=== PATIENT | female | born 1955 | race Caucasian/White ===

== ENCOUNTER → 2018-10-20 | Day surgery (SDC) | payer BC ==
[2018-10-19 12:00] LABS: ANION GAP 10.1 mmol/L (8-16); BLOOD UREA NITROGEN 18 mg/dL (7-26); BUN/CREATININE RATIO 21 (6-25); CALCIUM 9.8 mg/dL (8.4-10.2); CARBON DIOXIDE 28 mmol/L (22-29); CHLORIDE 106 mmol/L (98-107); CREATININE, SERUM 0.86 mg/dL (0.57-1.11); EST GLOMERULAR FILTRATION RATE > 60 ML/MIN (60-); GLUCOSE 61 mg/dL (74-118); POTASSIUM 5.1 mmol/L (3.5-5.1); SODIUM 139 mmol/L (136-145)
[~2018-10-20] MED LIST: BUPIVACAINE 0.5%/EPI 30 ML SDV INJ ONE; CLINDAMYCIN PHOS 900MG/ 50ML 50 ML IV ONE; DEXAMETHASONE SOD PHOS INJ 4 MG/ML VIAL ONE; DEXTROSE 5% 250ML 250 ML IV ONE; FENTANYL CITRATE/PF 100MCG/2 ML INJ ONE; LANTUS 3ML100 UNITS/; LIDOCAINE HCL 2% LOCAL INJ 5 ML SDV VIAL INJ ONE; METFORMIN HCL850 MG PO; MIDAZOLAM HCL 2 MG/2 ML VIAL ONE; ONDANSETRON HCL INJ 2MG/ML 2ML 2 MG/ML VIAL ONE; OSENI; PEPCID20 MG; PROPOFOL IV EMULSION 10 MG/ML 20 ML VIAL ONE; SEVOFLURANE INHAL SOLN 250 ML PEN BTL ONE
--- OUTSIDE RECORDS SUMMARY | 2018-10-20 07:43 | XMS REPORT | Clinical Summary ---
Author Author [facility] Address Unknown Phone Unavailable Care Team Providers Care Kitchen Runner Name Role Phone PCP Unavailable Allergies Not on File Medications Not on file Active Problems Not on file Social History Date Tobacco Use Types Packs/Day Years Used Never Assessed Sex Assigned at Date Recorded Not on file Industry Job Start Date Occupation Not on file Not on file Not on file Travel End Travel History Travel Start No recent travel history available. Last Filed Vital Signs Not on file Plan of Treatment Not on file Results Not on fileafter 10/19/2017
--- OUTSIDE RECORDS SUMMARY | 2018-10-20 07:43 | XMS REPORT | Clinical Summary ---
Author Author [facility] Address Unknown Phone Unavailable Care Team Providers Care Para Machine Operator Name Role Phone Lucas Mathews MD PCP Unavailable Allergies Comments Active Allergy Reactions Severity Noted Date Penicillins Rash Low 11/01/2015 Tetanus And Diphtheria 11/01/2015 Toxoids Medications End Date Status Medication Sig Dispensed Refills Start Date Active multivitamin with Take 1 tablet 0 minerals tablet by mouth daily. Active IRON,CARBONYL/VIT C/VIT Take 1 tablet 0 B12/FA (IRON 100 PLUS by mouth ORAL) daily. Active pen needle, diabetic (BD Use one 100 each 1 INSULIN PEN NEEDLE UF needle twice 7 MINI) 31 gauge x 3/16" a day needle Active PROAIR RESPICLICK 90 0 mcg/actuation aerosol 7 powdr breath activated Active levocetirizine (XYZAL) 5 Take 1 tablet 90 tablet 1 MG tablet (5 mg total) 8 by mouth every evening. Active famotidine (PEPCID) 20 MG Take 1 tablet 360 tablet 1 tablet (20 mg total) 8 by mouth 2 (two) times a day. Active metFORMIN XR Take 1 tablet 360 tablet 1 (GLUCOPHAGE-XR) 500 mg 24 (500 mg 8 hr tablet total) by mouth 2 (two) times a day. 05/03/2019 Active insulin GLARGINE (LANTUS Inject 70 1000 mL 1 U-100 INSULIN) 100 Units under 8 unit/mL injection (vial) the skin nightly. Active alogliptin-pioglitazone Take 1 tablet 180 tablet 4 (OSENI) 25-45 mg tablet by mouth 8 daily. Active blood sugar diagnostic Test 3 times 100 strip 11 strips (glucose blood) a day. 9 strip test strips Active lancets misc Test 3 times 100 each 11 a day. 9 11/17/2017 aspirin (ECOTRIN) 81 MG Take 1 tablet 30 tablet 11 enteric coated tablet (81 mg total) 7 by mouth daily. 11/02/2017 Discontinued levocetirizine (XYZAL) 5 Take 1 tablet 90 tablet 1 MG tablet (5 mg total) 7 by mouth every evening. 10/31/2017 traMADol (ULTRAM) 50 mg Take 1 tablet 180 tablet 1 tablet (50 mg total) 7 by mouth every 8 (eight) hours as needed for moderate pain for up to 180 days. 11/02/2017 Discontinued famotidine (PEPCID) 20 MG Take 1 tablet 360 tablet 1 tablet (20 mg total) 7 by mouth 2 (two) times a day. 11/02/2017 Discontinued metFORMIN XR Take 1 tablet 360 tablet 1 (GLUCOPHAGE-XR) 500 mg 24 (500 mg 7 hr tablet total) by mouth 2 (two) times a day. 05/03/2018 Discontinued alogliptin-pioglitazone Take 1 tablet 180 tablet 4 (OSENI) 25-45 mg tablet by mouth 7 daily. 11/02/2017 Discontinued insulin GLARGINE (LANTUS) Inject 70 1000 mL 1 100 unit/mL injection Units under 7 (vial) the skin nightly. 11/02/2017 Discontinued metFORMIN XR Take 1 tablet 360 tablet 1 (GLUCOPHAGE-XR) 500 mg 24 (500 mg 8 hr tablet total) by mouth 2 (two) times a day. 05/03/2018 Discontinued insulin GLARGINE (LANTUS Inject 70 1000 mL 1 U-100 INSULIN) 100 Units under 8 unit/mL injection (vial) the skin nightly. 11/02/2017 Discontinued famotidine (PEPCID) 20 MG Take 1 tablet 360 tablet 1 tablet (20 mg total) 8 by mouth 2 (two) times a day. 05/03/2018 Discontinued metFORMIN XR Take 1 tablet 360 tablet 1 (GLUCOPHAGE-XR) 500 mg 24 (500 mg 8 hr tablet total) by mouth 2 (two) times a day. 05/03/2018 Discontinued famotidine (PEPCID) 20 MG Take 1 tablet 360 tablet 1 tablet (20 mg total) 8 by mouth 2 (two) times a day. 01/31/2018 traMADol (ULTRAM) 50 mg Take 1 tablet 180 tablet 1 tablet (50 mg total) 8 by mouth 2 (two) times a day as needed for moderate pain for up to 90 days. 12/02/2017 mometasone (ELOCON) 0.1 % Apply 45 g 0 ointment topically 2 8 (two) times a day as needed (prn) for up to 30 days. 05/03/2018 Discontinued traMADol (ULTRAM) 50 mg TK 1 T PO BID 1 tablet PRF MODERATE 8 PAIN FOR UP TO 90 DAYS 10/01/2018 traMADol (ULTRAM) 50 mg TK 1 T PO BID 180 tablet 1 tablet PRN MODERATE 8 PAIN FOR UP TO 90 DAYS 08/22/2018 blood-glucose meter misc 1 applicator 1 each 0 2 (two) times 9 a day for 30 days. Active Problems Problem Noted Date Tobacco dependence 05/03/2018 Overview: Refuses medical tx at this time Statin intolerance 05/04/2017 Refused influenza vaccine 05/04/2017 Gastroesophageal reflux disease without esophagitis 11/17/2016 Colon cancer screening 11/17/2016 Hyperlipidemia 11/17/2016 Type 2 diabetes mellitus without complication, without long-term current 11/17/2016 use of insulin Primary osteoarthritis of both knees 11/17/2016 ACEI/ARB contraindicated 11/17/2016 Overview: has been unable to tolerate any of these meds due to side effects Encounters Care Team Description Date Type Specialty Carol Ibarra MA 07/23/2018 Orders Only Family Lucas Ram MD Type 2 diabetes mellitus without complication, without long-term current use of insulin (HCC) (Primary Dx); ACEI/ARB contraindicated; Statin intolerance; Pure hypercholesterolemia; Gastroesophageal reflux disease without esophagitis; Colon cancer screening; Tobacco dependence 05/03/2018 Office Visit Lucas Sanchez MD Type 2 diabetes mellitus without complication, without long-term current use of insulin (Primary Dx); Gastroesophageal reflux disease without esophagitis; ACEI/ARB contraindicated; Statin intolerance; Other hyperlipidemia; BMI 34.0-34.9,adult; Other atopic dermatitis 11/02/2017 Office Visit Family Medicine after 10/19/2017 Immunizations Name Dates Previously Given Next Due Influenza Trivalent 12/28/2015 Pneumococcal 05/25/2009 Polysaccharide Family History Medical History Relation Name Comments Diabetes Father No Known Problems Mother Relation Name Status Comments Father Mother Social History Date Tobacco Use Types Packs/Day Years Used Current Every Day Smoker Cigarettes 0.5 Smokeless Tobacco: Current User Alcohol Use Drinks/Week oz/Week Comments No Sex Assigned at Date Recorded Not on file Industry Job Start Date Occupation Not on file Not on file Not on file Travel End Travel History Travel Start No recent travel history available. Last Filed Vital Signs Time Taken Vital Sign Reading 05/03/2018 8:25 AM [facility] Blood Pressure 134/78 05/03/2018 8:25 AM [facility] Pulse 69 05/03/2018 8:25 AM [facility] Temperature 36.7 C (98 F) 11/02/2017 8:44 AM CDT Respiratory Rate 16 05/03/2018 8:25 AM [facility] Oxygen Saturation 97% - Inhaled Oxygen - Concentration 05/03/2018 8:25 AM [facility] Weight 95.3 kg (210 lb) 05/03/2018 8:25 AM [facility] Height 165.1 cm (5' 5") 05/03/2018 8:25 AM [facility] Body Mass Index 34.95 Plan of Treatment Care Team Description Date Type Specialty Lucas Mathews MD [id number] [address] [phone] 11/01/2018 Office Visit Family Medicine Health Maintenance Due Date Last Done Comments SHINGLES VACCINES (#1) 2006 DIABETIC FOOT EXAM 11/02/2018 11/02/2017, 11/02/2017 BREAST CANCER SCREENING 11/11/2018 11/11/2016 INFLUENZA VACCINE 12/23/2018 02/01/2018, 12/28/2015 DIABETIC RETINAL EYE EXAM 02/02/2019 02/02/2017 (Previously completed) URINE MICROALBUMIN 04/29/2019 04/29/2018, 10/29/2017, 04/30/2017, Additional history exists COLON CANCER SCREENING 10/06/2028 10/06/2018, 06/12/2017 Procedures Comments Procedure Name Priority Date/Time Associated Diagnosis ZZBLOOD OCCULT Routine 10/06/2018 Colon cancer screening PEROXIDASE, DIGITAL EXAM 9:45 AM CDT HEMOGLOBIN A1C Routine 04/29/2018 Type 2 diabetes mellitus 1:21 PM [facility] without complication, without long-term current use of insulin (HCC) Gastroesophageal reflux disease without esophagitis ACEI/ARB contraindicated Statin intolerance Other hyperlipidemia BMI 34.0-34.9,adult Other atopic dermatitis MICROALBUMIN / CREATININE Routine 04/29/2018 Type 2 diabetes mellitus URINE RATIO 1:21 PM [facility] without complication, without long-term current use of insulin (HCC) Gastroesophageal reflux disease without esophagitis ACEI/ARB contraindicated Statin intolerance Other hyperlipidemia BMI 34.0-34.9,adult Other atopic dermatitis URINALYSIS, AUTOMATED Routine 04/29/2018 Type 2 diabetes mellitus WITH MICROSCOPY 1:21 PM [facility] without complication, without long-term current use of insulin (HCC) Gastroesophageal reflux disease without esophagitis ACEI/ARB contraindicated Statin intolerance Other hyperlipidemia BMI 34.0-34.9,adult Other atopic dermatitis HEPATIC FUNCTION PANEL Routine 04/29/2018 Type 2 diabetes mellitus 1:21 PM [facility] without complication, without long-term current use of insulin (HCC) Gastroesophageal reflux disease without esophagitis ACEI/ARB contraindicated Statin intolerance Other hyperlipidemia BMI 34.0-34.9,adult Other atopic dermatitis LIPID PANEL Routine 04/29/2018 Type 2 diabetes mellitus 1:21 PM [facility] without complication, without long-term current use of insulin (HCC) Gastroesophageal reflux disease without esophagitis ACEI/ARB contraindicated Statin intolerance Other hyperlipidemia BMI 34.0-34.9,adult Other atopic dermatitis CBC WITH PLATELET AND Routine 04/29/2018 Type 2 diabetes mellitus DIFFERENTIAL 1:21 PM [facility] without complication, without long-term current use of insulin (HCC) Gastroesophageal reflux disease without esophagitis ACEI/ARB contraindicated Statin intolerance Other hyperlipidemia BMI 34.0-34.9,adult Other atopic dermatitis BASIC METABOLIC PANEL Routine 04/29/2018 Type 2 diabetes mellitus 1:21 PM [facility] without complication, without long-term current use of insulin (HCC) Gastroesophageal reflux disease without esophagitis ACEI/ARB contraindicated Statin intolerance Other hyperlipidemia BMI 34.0-34.9,adult Other atopic dermatitis URINALYSIS, AUTOMATED Routine 10/29/2017 WITH MICROSCOPY 8:52 AM CDT CBC WITH PLATELET AND Routine 10/29/2017 Type 2 diabetes mellitus DIFFERENTIAL 8:52 AM CDT without complication, without long-term current use of insulin Gastroesophageal reflux disease without esophagitis Hyperlipidemia, unspecified hyperlipidemia type HEMOGLOBIN A1C Routine 10/29/2017 Type 2 diabetes mellitus 8:52 AM CDT without complication, without long-term current use of insulin MICROALBUMIN / CREATININE Routine 10/29/2017 Type 2 diabetes mellitus URINE RATIO 8:52 AM CDT without complication, without long-term current use of insulin HEPATIC FUNCTION PANEL Routine 10/29/2017 Hyperlipidemia, 8:52 AM CDT unspecified hyperlipidemia type LIPID PANEL Routine 10/29/2017 Hyperlipidemia, 8:52 AM CDT unspecified hyperlipidemia type BASIC METABOLIC PANEL Routine 10/29/2017 Type 2 diabetes mellitus 8:52 AM CDT without complication, without long-term current use of insulin after 10/19/2017 Results * Fecal Globin by Immunochemistry (InSure), Medicare Screen (10/06/2018 9:45 AM CDT) Result SEE NOTEComment: Not Detected [facility] [place] Specimen Stool Narrative Performed At FASTING: UNKNOWN [facility] Resulting Agency Comment Performing Organization Information: Site ID: [id number] Name: [facility] Address: [address] [place] [phone] Director: Kamilah Harrison Performing Organization Address City/State/Zipcode Phone Number [employer] [address] [address] * Microalbumin / creatinine urine ratio (04/29/2018 1:21 PM [facility]) Only the most recent of 2 results within the time period is included. Pathologist [facility] Creatinine, 149 20 - 275 mg/dL [facility] urine, random [facility] [place] Microalbumin, 0.9 See Note: mg/dL [facility] urine Comment: DIAGNOSTICS Reference Range: [place] Reference Range Not established Microalbumin/cr 6 <30 mcg/mg creat [facility] eatinine ratio Comment: DIAGNOSTICS The ADA defines abnormalities BLANCAS in albumin excretion as follows: Category Result (mcg/mg creatinine) Normal <30 Microalbuminuria 30-299 Clinical albuminuria > BV=275 The ADA recommends that at least two of three specimens collected within a 3-6 month period be abnormal before considering a patient to be within a diagnostic category. Specimen Urine Narrative Performed At FASTING: UNKNOWN [facility] Resulting Agency Comment Performing Organization Information: Site ID: [id number] Name: [facility] Address: [address] [place] [phone] Director: Kamilah Harrison Performing Organization Address [facility] Cent[facility] Phone Number [place] [address] * Urinalysis, automated with microscopy (04/29/2018 1:21 PM [facility]) Only the most recent of 2 results within the time period is included. Color, UA YELLOW YELLOW [facility] [place] Appearance CLEAR CLEAR [facility] [place] Specific 1.026 1.001 - 1.035 [facility] gravity, urine [facility] [place] pH, urine 5.5 5.0 - 8.0 [facility] [place] Glucose, urine NEGATIVE NEGATIVE [facility] [place] Bilirubin, UA NEGATIVE NEGATIVE [facility] [place] Ketones, UA NEGATIVE NEGATIVE [facility] [place] Occult blood, NEGATIVE NEGATIVE [facility] urine [facility] [place] Protein, UA NEGATIVE NEGATIVE [facility] [place] Nitrite, UA NEGATIVE NEGATIVE [facility] [place] Leukocyte NEGATIVE NEGATIVE [facility] esterase, UA [facility] [place] WBC, UA NONE SEEN < OR=5 /HPF [facility] [place] RBC, UA 0-2 < OR=2 /HPF [facility] [place] Squamous 0-5 < OR=5 /HPF [facility] epithelial [facility] cells, UA [place] Bacteria, UA NONE SEEN NONE SEEN /HPF [facility] [place] Hyaline casts, NONE SEEN NONE SEEN /LPF [facility] UA [facility] [place] Specimen Urine Narrative Performed At FASTING: UNKNOWN [facility] Resulting Agency Comment Performing Organization Information: Site ID: [id number] Name: [facility] Address: [address] [place] [phone] Director: Kamilah Harrison Performing Organization Address [facility] Centercode Phone Number [employer] [address] [phone] * CBC with platelet and differential (04/29/2018 1:21 PM [facility]) Only the most recent of 2 results within the time period is included. [facility] WBC 4.9 3.8 - 10.8 [facility] Thousand/uL [facility] [place] RBC 4.14 3.80 - 5.10 [facility] Million/uL [facility] [place] HGB 12.8 11.7 - 15.5 g/dL [facility] [place] HCT 38.3 35.0 - 45.0 % [facility] [place] MCV 92.5 80.0 - 100.0 fL [facility] [place] MCH 30.9 27.0 - 33.0 pg [facility] [place] MCHC 33.4 32.0 - 36.0 g/dL [facility] [place] RDW 13.4 11.0 - 15.0 % [facility] [place] Platelet count 237 140 - 400 [facility] Thousand/uL [facility] [place] MPV 11.1 7.5 - 12.5 fL [facility] [place] Neutrophils, 2,940 1,500 - 7,800 [facility] absolute cells/uL [facility] [place] Lymphocytes, 1,397 850 - 3,900 cells/uL [facility] absolute [facility] [place] Monocytes, 372 200 - 950 cells/uL [facility] absolute [facility] [place] Eosinophils, 152 15 - 500 cells/uL [facility] absolute [facility] [place] Basophils, 39 0 - 200 cells/uL [facility] absolute [facility] [place] Neutrophils 60 % [facility] [place] Lymphocytes 28.5 % [facility] [place] Monocytes 7.6 % [facility] [place] Eosinophils 3.1 % [facility] [place] Basophils + RC 0.8 % [facility] [place] Specimen Blood Narrative Performed At FASTING: UNKNOWN [facility] Resulting Agency Comment Performing Organization Information: Site ID: [id number] Name: [facility] Address: [address] [place] [phone] Director: Kamilah Harrison Performing Organization Address City/State/Zipcode Phone Number [place] [address] * Hemoglobin A1c (04/29/2018 1:21 PM [facility]) Only the most recent of 2 results within the time period is included. [facility] Hemoglobin A1C 5.8 (H) <5.7 % of total Hgb [facility] Comment: DIAGNOST[facility] For someone without known [place] diabetes, a hemoglobin A1c value between 5.7% and 6.4% is consistent with prediabetes and should be confirmed with a follow-up test. For someone with known diabetes, a value <7% indicates that their diabetes is well controlled. A1c targets should be individualized based on duration of diabetes, age, comorbid conditions, and other considerations. This assay result is consistent with an increased risk of diabetes. Currently, no consensus exists regarding use of hemoglobin A1c for diagnosis of diabetes for children. NO COLLECTION DATE RECEIVED. WE HAVE USED THE DATE THE SPECIMEN WAS RECEIVED BY THIS LABORATORY THE COLLECTION DATE. IF THIS IS INCORRECT, PLEASE CONTACT CLIENT SERVICES. PHONE NUMBER: [phone] Specimen Blood Narrative Performed At FASTING: UNKNOWN [facility] Resulting Agency Comment Performing Organization Information: Site ID: [facility] Name: [facility] Address: [address] [place] [phone] Director: Kamilah Harrison Performing Organization Address City/[facility] Centercode Phone Number [employer] [address] [address] * Hepatic function panel (04/29/2018 1:21 PM [facility]) Only the most recent of 2 results within the time period is included. Protein 6.9 6.1 - 8.1 g/dL [facility] [place] Albumin, S 4.0 3.6 - 5.1 g/dL [facility] [place] Globulin, total 2.9 1.9 - 3.7 g/dL [facility] (calc) [facility] [place] Albumin/globuli 1.4 1.0 - 2.5 (calc) [facility] n ratio [facility] [place] Total bilirubin 0.3 0.2 - 1.2 mg/dL [facility] [place] Bilirubin 0.1 < OR=0.2 mg/dL [facility] direct [facility] [place] Bilirubin, 0.2 0.2 - 1.2 mg/dL [facility] indirect (calc) [facility] [place] Alkaline 79 33 - 130 U/L [facility] phosphatase [facility] [place] AST 20 10 - 35 U/L [facility] [place] ALT 17 6 - 29 U/L [facility] [place] Specimen Blood Narrative Performed At FASTING: UNKNOWN [facility] Resulting Agency Comment Performing Organization Information: Site ID: [id number] Name: [facility] Address: [address] [place] [phone] Director: Kamilah Harrison Performing Organization Address City/[facility] Centercode Phone Number [employer] [address] [address] * Lipid panel (04/29/2018 1:21 PM [facility]) Only the most recent of 2 results within the time period is included. Pathologist [facility] Cholesterol, 215 (H) <200 mg/dL [facility] total [facility] [place] HDL cholesterol 48 (L) >50 mg/dL [facility] [place] Triglycerides 156 (H) <150 mg/dL [facility] [place] LDL cholesterol 138 (H) mg/dL (calc) [facility] calculated Comment: DIAGNOSTICS Reference range: <100 [place] Desirable range <100 mg/dL for primary prevention; <70 mg/dL for patients with CHD or diabetic patients with > or=2 CHD risk factors. LDL-C is now calculated using the Melly calculation, which is a validated novel method providing better accuracy than the Friedewald equation in the estimation of LDL-C. Ti ABAD et al. CINTHIA. 2013;310(56): 4298-1571 (http://education.BigTwist.Red Swoosh/faq/STE816) Cholesterol/HDL 4.5 <5.0 (calc) [facility] ratio [facility] [place] Non-HDL 167 (H) <130 mg/dL (calc) [facility] cholesterol Comment: DIAGNOSTICS For patients with diabetes [place] plus 1 major ASCVD risk factor, treating to a non-HDL-C goal of <100 mg/dL (LDL-C of <70 mg/dL) is considered a therapeutic option. Specimen Blood Narrative Performed At FASTING: UNKNOWN [facility] Resulting Agency Comment Performing Organization Information: Site ID: [id number] Name: [facility] Address: [address] [place] [phone] Director: Kamilah Harrison Performing Organization Address City/State/Zipcode Phone Number [facility] [address] * Basic metabolic panel (04/29/2018 1:21 PM [facility]) Only the most recent of 2 results within the time period is included. [facility] Glucose 74 65 - 99 mg/dL [facility] Comment: DIAGNOSTICS Fasting [place] reference interval BUN, whole 29 (H) 7 - 25 mg/dL [facility] blood [facility] [place] Creatinine 0.76 0.50 - 0.99 mg/dL [facility] Comment: DIAG[facility]ST[facility] For patients >49 years of age, [place] the reference limit for Creatinine is approximately 13% higher for people identified as -Guyanese. EGFR Non-Afr. 84 > OR=60 [facility] Guyanese mL/min/1.73m2 [facility] [place] EGFR 97 > OR=60 [facility] [place] mL/min/1.73m2 [facility] [place] BUN/creatinine 38 (H) 6 - 22 (calc) [facility] ratio [facility] [place] Sodium 141 135 - 146 mmol/L [facility] [place] Potassium 4.4 3.5 - 5.3 mmol/L [facility] [place] Chloride 103 98 - 110 mmol/L [facility] [place] CO2 31 20 - 32 mmol/L [facility] [place] Calcium 9.9 8.6 - 10.4 mg/dL [employer] [facility] [place] Specimen Blood Narrative Performed At FASTING: UNKNOWN [facility] Resulting Agency Comment Performing Organization Information: Site ID: [id number] Name: [facility] Address: [address] [place] [address] Director: Kamilah Harrison Performing Organization Address City/State/Zipcode Phone Number [employer] [place] [address] [place] [address] after 10/19/2017 Insurance Type Payer Benefit Subscriber ID Effective Phone Address Plan / Dates Group PPO BCBS BCBS xxxxxxxxxxxx [id number] CHOICE resent PPO/OCTAVIO L EMPL PPO Advance Directives Patient has advance care planning documents on file. For more information, shana donald contact: Harvey Vazquez [address] [place] [address]
[2018-10-20 13:20] VITALS: BP 121/78
--- NOTE | 2018-10-21 21:36 | Operative Report ---
DATE OF PROCEDURE: 10/20/2018 SURGEON: Raymundo Vargas MD PREOPERATIVE DIAGNOSES: Right knee medial meniscus tear and right knee degenerative joint disease of the knee. POSTOPERATIVE DIAGNOSES: Right knee medial meniscus tear, right knee degenerative joint disease of the knee, and right knee intra-articular loose bodies. OPERATION/PROCEDURE PERFORMED: The patient underwent a right knee examination under anesthesia, right knee arthroscopy, right knee partial medial meniscectomy, right knee chondroplasty of the patella, the trochlea, the medial femoral condyle, the medial tibial plateau, the lateral femoral condyle, lateral tibial plateau. There was also removal of several intraarticular loose bodies from the medial compartment. AIRCRAFT ENGINE SPECIALIST: Lexii Brunson. ANESTHESIA: General endotracheal intubation anesthesia. INTRAVENOUS FLUIDS: Per anesthesia record. BRIEF DESCRIPTION OF THE PATIENT'S OPERATIVE PROCEDURE: Ms. Villa is taken to the operating room, placed in supine position operating table. Following the induction of general anesthesia as well as endotracheal intubation, the patient's right lower extremity was examined under anesthesia. She was found to have a mild effusion within the knee joint, but otherwise ligamentously stable knee. The patient's lower extremities were prepped and draped in standard surgical fashion. A two port technique used to provide this patient arthroscopic evaluation of the joint. Examination of suprapatellar pouch, medial lateral gutters found no evidence of loose bodies. There was, however, evidence of chondromalacia of the patellar trochlear surfaces. Scope was advanced to medial compartment. Examination of the medial compartment demonstrated a torn medial meniscus. There was also chondromalacia articulating surfaces. There were also several cartilaginous intra-articular loose bodies. The shaver was placed in the knee joint and the loose bodies were removed. The combination of biting forceps and a motorized shaver used to resect the torn portion of meniscus. The chondroplasty of the medial femoral condyle and medial tibial plateau performed at this time. Scope was advanced to the intercondylar notch. Anterior cruciate ligament was identified and found to be intact. Scope was advanced to lateral compartment, there was chondromalacia of the articulating surfaces. A chondroplasty of the lateral femoral condyle and lateral tibial plateau were performed at this time. Scope was then placed in suprapatellar pouch and chondroplasties of patellar trochlear performed. The knee was deflated with sterile saline. The portal sites were closed using 4-0 nylon suture. The portal sites as well as knee itself were then injected with 0.5% Marcaine with epinephrine. Sterile dressings were applied. The patient was awakened and taken to postanesthesia care in stable condition. MD CORKY Garcia/FLORENTINO /[id number]
== END | disposition home or self-care (01) ==
LOC: OR 07:34
PROVIDERS: ATTEND Specialist
DX: S83.221A Peripheral tear of medial meniscus, current injury, right knee, initial encounter (principal); M17.11 Unilateral primary osteoarthritis, right knee; M23.41 Loose body in knee, right knee; M22.41 Chondromalacia patellae, right knee; E11.9 Type 2 diabetes mellitus without complications; I49.9 Cardiac arrhythmia, unspecified; F17.210 Nicotine dependence, cigarettes, uncomplicated; X58.XXXA Exposure to other specified factors, initial encounter; Z88.0 Allergy status to penicillin; Z88.7 Allergy status to serum and vaccine; Z01.810 Encounter for preprocedural cardiovascular examination; Z01.812 Encounter for preprocedural laboratory examination; Z79.4 Long term (current) use of insulin; Z68.33 Body mass index [BMI] 33.0-33.9, adult
CPT/HCPCS: 29881; 36415 ×2; 80048; 82948; 93005; J1100; J2001; J2250; J2405; J2704; J7070